=== PATIENT | female | born 1980 | race Caucasian/White ===

== ENCOUNTER 2017-09-20 06:00 | Emergency (ER) | payer BC ==
[~2017-09-20] VITALS: Ht 167.6 cm; Wt 118.3 kg
[~2017-09-20 06:00] MED LIST: DOXY30TA; MTR600X PO; OXYC-57 PO; PRENTAB26 PO; PREVACID PO
[2017-09-20 06:04] VITALS: TEMP 36.7; Ht 167.6 cm; Wt 118.3 kg
[2017-09-20] MEDS ORDERED: KETOROLAC TROMETHAMINE 30 MG/ML VIAL IV STA (06:45)
[2017-09-20 06:56] LABS: BASO % 0.4 %; BASO ABS # 0.04 K/uL (0-0.2); EOS % 1.4 %; EOS ABS # 0.16 K/uL (0-0.5); HEMATOCRIT 43.2 % (37-47); HEMOGLOBIN 14.2 g/dL (12.0-16.0); IG# 0.03 K/uL (0.00-0.02); LYMPH % 23.3 %; LYMPH ABS # 2.64 K/uL (1.2-3.4); MEAN CELL VOLUME 88.5 fL (80-100); MEAN CORPUSCULAR HEMOGLOBIN 29.1 pg (25-34); MEAN CORPUSCULAR HGB CONC 32.9 g/dl (32-36); MEAN PLATELET VOLUME 9.5 fL (7.4-10.4); MONO % 7.5 %; MONO ABS # 0.85 K/uL (0.11-0.59); NEUT % 67.1 %; NEUT ABS # 7.62 K/uL (1.4-6.5); PLATELET COUNT 354 K/uL (130-400); RED CELL DISTRIBUTION WIDTH CV 13.1 % (11.5-14.5); RED CELL DISTRIBUTION WIDTH SD 42.8 fL (36.4-46.3); WHITE BLOOD COUNT 11.34 K/uL (4.8-10.8)
--- NOTE | 2017-09-20 06:57 | EMERGENCY ROOM VISIT NOTE ---
History Report prepared by Darwin: Cortney Bello Under the Supervision of: Dr. Kacy Mo M.D. First contact with patient: 06:38 Chief Complaint: CALF PAIN Stated Complaint: CALF PAIN, RACING HEART History of Present Illness The patient is a 37 year old female who presents to the Emergency Room with complaints of constant right calf pain beginning last night. She reports that her calf is sore to the touch and feels warm. She has varicose veins near where her pain is in her leg. The patient rates her pain as a 7/10 in severity. She notes that her heart has been racing on and off for the past 36 hours. She reports a "sinking" feeling in her chest. She has not taken any medications for her symptoms. Last week the patient traveled back to the from [place]. The patient denies chest pain, shortness of breath, nausea, vomiting, diarrhea, and abdominal pain. She denies any personal or family history of blood clots. She denies any chance of . The patient does not take any hormones. She does not smoke. Source of History: patient Onset: last night Position: leg (right) Symptom Intensity: 7/10 Quality: other (sore) Timing: constant Modifying Factors (Worsening): other (touch) Associated Symptoms: No chest pain, No SOB, No nausea, No vomiting, No abdominal pain, No diarrhea Note: Pt notes heart racing Review of Systems See HPI for pertinent positives & negatives. A total of 10 systems reviewed and were otherwise negative. Past Medical & Surgical Medical Problems: (1) Acid reflux (2) Kidney stone Family History Diabetes mellitus Heart disease Kidney stones Social History Smoking Status: Never Smoker Smokeless Tobacco Use: No Alcohol Use: none Marital Status: Housing Status: lives with family Occupation Status: unemployed Current/Historical Medications No Active Prescriptions or Reported Meds Allergies Coded Allergies: Adhesives (Verified Adverse Reaction, Mild, ADHESIVES WITH TAPE-RASH, 09/20) Physical Exam Vital Signs Date Time Temp Pulse Resp B/P (MAP) Pulse Ox O2 Delivery O2 Flow Rate FiO2 09/20/17 09:19 76 20 115/77 98 09/20/17 07:50 72 20 123/83 94 Room Air 09/20/17 06:49 84 09/20/17 06:04 36.7 86 18 146/78 96 Room Air Physical Exam Vital signs reviewed. General: Well-appearing female, in no significant distress, noted to be hypertensive. HEENT: No scleral icterus, PERRLA, neck supple. Atraumatic. Cardiovascular: Regular rate and rhythm, no extra sounds. Pulmonary: Clear to auscultation bilaterally, normal work of breathing. Abdomen: Soft, obese, nontender, nondistended, positive bowel sounds. Musculoskeletal: Atraumatic, no peripheral edema. Right posterior calf varicosity that is tender to touch. Neurologic: Patient awake alert and oriented x 3, full strength in all 4 extremities. Cranial nerves 2 through 12 grossly intact. Skin: Warm, dry, no rash Medical Decision & Procedures ER Provider Diagnostic Interpretation: Radiology results as stated below per my review and radiologist interpretation: ULTRASOUND VENOUS DOPPLER LWR EXT BILA CLINICAL HISTORY: Leg pain. Atypical chest pain COMPARISON STUDY: No previous studies for comparison. FINDINGS: Real-time and color flow Doppler imaging were performed. Flow was seen within the femoral, popliteal and calf veins with no intraluminal thrombus demonstrated. The saphenous vein is patent. There are thrombosed superficial varicosities within the right calf. IMPRESSION: 1. Thrombosed right calf superficial varicosities 2. No evidence of lower extremity DVT Electronically signed by: Rufino Bonner M.D. 09/20/2017 7:33 AM Dictated Date/Time: 09/20/2017 7:32 AM CHEST ONE VIEW PORTABLE CLINICAL HISTORY: Atypical chest pain COMPARISON STUDY: 12/23/2013 FINDINGS: The heart is borderline enlarged. There is no failure. There is no focal pulmonary consolidation. There are no pleural effusions.[ IMPRESSION: Borderline cardiomegaly. No acute findings. Electronically signed by: Rufino Bonner M.D. 09/20/2017 7:01 AM Dictated Date/Time: 09/20/2017 7:01 AM Laboratory Results 09/20/17 06:46 Red Blood Count 4.88, Mean Corpuscular Volume 88.5, Mean Corpuscular Hemoglobin 29.1, Mean Corpuscular Hemoglobin Concent 32.9, Mean Platelet Volume 9.5, Neutrophils (%) (Auto) 67.1, Lymphocytes (%) (Auto) 23.3, Monocytes (%) (Auto) 7.5, Eosinophils (%) (Auto) 1.4, Basophils (%) (Auto) 0.4, Neutrophils # (Auto) 7.62, Lymphocytes # (Auto) 2.64, Monocytes # (Auto) 0.85, Eosinophils # (Auto) 0.16, Basophils # (Auto) 0.04 09/20/17 06:46 Test 09/20/17 06:46 White Blood Count 11.34 K/uL (4.8-10.8) Red Blood Count 4.88 M/uL (4.2-5.4) Hemoglobin 14.2 g/dL (12.0-16.0) Hematocrit 43.2 % (37-47) Mean Corpuscular Volume 88.5 fL (80-100) Mean Corpuscular Hemoglobin 29.1 pg (25-34) Mean Corpuscular Hemoglobin Concent 32.9 g/dl (32-36) Platelet Count 354 K/uL (130-400) Mean Platelet Volume 9.5 fL (7.4-10.4) Neutrophils (%) (Auto) 67.1 % Lymphocytes (%) (Auto) 23.3 % Monocytes (%) (Auto) 7.5 % Eosinophils (%) (Auto) 1.4 % Basophils (%) (Auto) 0.4 % Neutrophils # (Auto) 7.62 K/uL (1.4-6.5) Lymphocytes # (Auto) 2.64 K/uL (1.2-3.4) Monocytes # (Auto) 0.85 K/uL (0.11-0.59) Eosinophils # (Auto) 0.16 K/uL (0-0.5) Basophils # (Auto) 0.04 K/uL (0-0.2) RDW Standard Deviation 42.8 fL (36.4-46.3) RDW Coefficient of Variation 13.1 % (11.5-14.5) Immature Granulocyte % (Auto) 0.3 % Immature Granulocyte # (Auto) 0.03 K/uL (0.00-0.02) Prothrombin Time 10.0 SECONDS (9.0-12.0) Prothromb Time International Ratio 1.0 (0.9-1.1) Activated Partial Thromboplast Time 23.0 SECONDS (21.0-31.0) Partial Thromboplastin Ratio 0.9 D-Dimer 260 ug/L FEU (0-500) Anion Gap 6.0 mmol/L (3-11) Est Creatinine Clear Calc Drug Dose 130.0 ml/min Estimated GFR () 112.4 Estimated GFR (Non- 97.0 BUN/Creatinine Ratio 13.7 (10-20) Calcium Level 9.0 mg/dl (8.5-10.1) Magnesium Level 2.1 mg/dl (1.8-2.4) Troponin I < 0.015 ng/ml (0-0.045) Thyroid Stimulating Hormone (TSH) 3.100 uIu/ml (0.300-4.500) Laboratory results per my review. Medications Administered Medications (Trade) Dose Ordered Sig/Constantin Route Start Time Stop Time Status Last Admin Dose Admin Ketorolac Tromethamine (Toradol Inj) 30 mg NOW STAT IV 09/20/17 06:45 09/20/17 06:48 DC 09/20/17 07:51 30 MG ECG Per My Interpretation Indication: other Rate (beats per minute): 78 Rhythm: normal sinus Findings: no acute ischemic change, no ectopy, other (no ST depressions or elevations) ED Course 0638: Past medical records reviewed. The patient was evaluated in room B3B. A complete history and physical examination was performed. 0645: Toradol 30 mg IV 0917: I reassessed the patient at this time. She is feeling better and resting comfortably. I discussed the results and treatment plan with the patient. I answered all pertaining questions that she had. She expressed understanding and verbalized agreement. The patient will be discharged home. Medical Decision Differential diagnosis: Etiologies such as DVT, musculoskeletal, infection, joint effusion, trauma, lymphedema, idiopathic, CHF, as well as others were entertained. This patient was evaluated and appeared to be in no significant distress. Physical examination reveals varicosity of the right lower extremity. She is somewhat tender over the calf in the air of the varicosity. Ultrasound was performed to reveals a superficial thrombophlebitis however there is no evidence of DVT. Patient's laboratory work is fairly unrevealing. IV Toradol was administered for her discomfort. Patient was advised to wear compression stockings to help prevent a reoccurrence. She will use ibuprofen as needed for pain, warm compresses as needed. She will follow-up with her physician within the week for reevaluation and return to the ER for worsening of symptoms or any medical concerns. Medication Reconcilliation Current Medication List: was personally reviewed by me Blood Pressure Screening Patient's blood pressure: Elevated blood pressure Blood pressure disposition: Referred to PCP Impression Primary Impression: Superficial thrombophlebitis Scribe Attestation The scribe's documentation has been prepared under my direction and personally reviewed by me in its entirety. I confirm that the note above accurately reflects all work, treatment, procedures, and medical decision making performed by me. Departure Information Dispostion Home / Self-Care Prescriptions No Active Prescriptions or Reported Meds Referrals Leigh Ann Machado DO (PCP) Forms HOME CARE DOCUMENTATION FORM, IMPORTANT VISIT INFORMATION Patient Instructions ED Phlebitis Superficial, My [facility] Additional Instructions Diagnosis: Superficial thrombophlebitis Ibuprofen 600 mg every 6 hours as needed for pain with food. Wear supportive stockings, graduated compression stockings work well. Warm compresses intermittently for the next several days. Follow-up with your PCP this week for reevaluation and return to the ER for worsening of symptoms or any medical concerns.
--- NOTE | 2017-09-20 07:03 | DIAGNOSTIC IMAGING REPORT ---
CHEST ONE VIEW PORTABLE CLINICAL HISTORY: Atypical chest pain COMPARISON STUDY: 12/23/2013 FINDINGS: The heart is borderline enlarged. There is no failure. There is no focal pulmonary consolidation. There are no pleural effusions.[ IMPRESSION: Borderline cardiomegaly. No acute findings. Electronically signed by: Rufino Bonner M.D. 09/20/2017 7:01 AM Dictated Date/Time: 09/20/2017 7:01 AM
[2017-09-20 07:11] LABS: BLOOD UREA NITROGEN 11 mg/dl (7-18); CARBON DIOXIDE 26 mmol/L (21-32); CREATININE 0.79 mg/dl (0.60-1.20); GLUCOSE 103 mg/dl (70-99); POTASSIUM 3.9 mmol/L (3.5-5.1); SODIUM 139 mmol/L (136-145)
--- NOTE | 2017-09-20 07:34 | DIAGNOSTIC IMAGING REPORT ---
ULTRASOUND VENOUS DOPPLER LWR EXT BILA CLINICAL HISTORY: Leg pain. Atypical chest pain COMPARISON STUDY: No previous studies for comparison. FINDINGS: Real-time and color flow Doppler imaging were performed. Flow was seen within the femoral, popliteal and calf veins with no intraluminal thrombus demonstrated. The saphenous vein is patent. There are thrombosed superficial varicosities within the right calf. IMPRESSION: 1. Thrombosed right calf superficial varicosities 2. No evidence of lower extremity DVT Electronically signed by: Rufino Bonner M.D. 09/20/2017 7:33 AM Dictated Date/Time: 09/20/2017 7:32 AM
[2017-09-20 09:19] VITALS: BP 115/77; PULSE 76; O2SAT 98
== END 2017-09-20 09:21 | disposition home or self-care (01) ==
LOC: C.EDB 06:02
DX: I80.01 Phlebitis and thrombophlebitis of superficial vessels of right lower extremity (principal); I83.91 Asymptomatic varicose veins of right lower extremity; R00.0 Tachycardia, unspecified; Z87.442 Personal history of urinary calculi; Z91.048 Other nonmedicinal substance allergy status